=== PATIENT | male | born 1995 | race Caucasian/White ===

== ENCOUNTER 2021-08-23 15:54 | Emergency (ER) | payer OTHER ==
[~2021-08-23] VITALS: Ht 172.7 cm; Wt 65.8 kg
[2021-08-23] MEDS ORDERED: CARI350T PO (16:32)
--- NOTE | 2021-08-23 17:03 | NUR ---
PT WAS EVALUATED BY DR MIR. PT WAS D/C'd TO HOME. D/C INSTRUCTIONS GIVEN TO THE PT. BY DR MIR.
[2021-08-23 17:04] VITALS: BP 123/72
== END 2021-08-23 17:24 | disposition home or self-care (01) ==
LOC: ER 16:03
DX: M54.50 Low back pain, unspecified (principal); G89.29 Other chronic pain
CPT/HCPCS: A4663